=== PATIENT | female | born 1970 | race Hispanic/Latino ===

== ENCOUNTER → 2017-10-15 | Outpatient (CLI) | payer OTHER ==
--- NOTE | 2017-10-15 11:28 | Diagnostic Imaging Report ---
PROCEDURE: Transabdominal and transvaginal ultrasound imaging of the pelvis was performed. TECHNIQUE: COMPARISON: None. INDICATIONS: DUB FINDINGS: UTERUS: The uterus measures 13.0 x 5.5 x 6.8 cm. The endometrial echocomplex measures 1.1 cm. OVARIES/ADNEXA: No focal mass. Right ovary 3.1 x 2.1 x 2.2 cm. Left ovary 2.5 x 2.0 x 2.6 cm. 1.4 x 1.5 x 1.4 cm simple cyst of the left ovary. PELVIS: No free fluid. IMPRESSION: No acute sonographic abnormality. Dictated by: Edwin Fields M.D. on 10/15/2017 at 11:28 Electronically approved by: Edwin Fields M.D. on 10/15/2017 at 11:28
== END ==
LOC: US 09:04
PROVIDERS: ATTEND Family Medicine
DX: N93.8 Other specified abnormal uterine and vaginal bleeding (principal)
CPT/HCPCS: 76856